=== PATIENT | male | born 1960 | race Caucasian/White ===

== ENCOUNTER 2020-08-04 02:01 | Day surgery (SDC) | payer MEDICARE, OTHER ==
[~2020-08-04 02:01] MED LIST: CIPR250 PO; FINA5 PO; HYDR1TAB94 PO; JANTOVEN2 MG PO; LEVE500 PO; MINO100 PO; OXYB5 PO; Oxybutynin Chlo15 MG PO; PHENY100ER PO; TAMS.4ER PO; WARF2 PO; WARF2.5 PO; WARF3 PO
[2020-08-04] MEDS ORDERED: ENOX100I SC (14:35)
== END 2020-08-04 14:10 | disposition home or self-care (01) ==
LOC: ATC 02:01
DX: K40.20 Bilateral inguinal hernia, without obstruction or gangrene, not specified as recurrent (principal); D68.2 Hereditary deficiency of other clotting factors; N52.9 Male erectile dysfunction, unspecified; I10 Essential (primary) hypertension; E78.5 Hyperlipidemia, unspecified; Z79.01 Long term (current) use of anticoagulants; Z87.891 Personal history of nicotine dependence
CPT/HCPCS: 96372; J1650

== ENCOUNTER 2020-08-05 00:19 | Day surgery (SDC) | payer MEDICARE, OTHER ==
[~2020-08-05 00:19] MED LIST changes: +ENOX100I SC
== END 2020-08-05 15:10 | disposition home or self-care (01) ==
LOC: ATC 00:19
DX: D68.2 Hereditary deficiency of other clotting factors (principal); K40.20 Bilateral inguinal hernia, without obstruction or gangrene, not specified as recurrent; Z79.01 Long term (current) use of anticoagulants; Z87.891 Personal history of nicotine dependence; Z86.010 Personal history of colon polyps; Z85.841 Personal history of malignant neoplasm of brain; R56.9 Unspecified convulsions; N52.9 Male erectile dysfunction, unspecified; N48.6 Induration penis plastica
CPT/HCPCS: 96372; J1650

== ENCOUNTER 2020-08-06 00:17 | Day surgery (SDC) | payer MEDICARE, OTHER | END 2020-08-06 15:10 | disposition home or self-care (01) | LOC: ATC 00:17 | DX: D68.2 Hereditary deficiency of other clotting factors (principal); K40.20 Bilateral inguinal hernia, without obstruction or gangrene, not specified as recurrent; I10 Essential (primary) hypertension; E78.5 Hyperlipidemia, unspecified; N48.6 Induration penis plastica; Z79.01 Long term (current) use of anticoagulants; Z87.891 Personal history of nicotine dependence | CPT/HCPCS: 36416; 85610; 96372; J1650 ==

== ENCOUNTER 2020-08-07 06:11 | Day surgery (SDC) | payer MEDICARE, SELFPAY ==
[~2020-08-07] VITALS: Ht 185.4 cm; Wt 90.0 kg
--- NOTE | 2020-08-07 06:57 | NUR ---
Ambulatory in Day Surgery History, Chart, Medications and Allergies reviewed before start of procedure. Lungs clear T/O to Auscultation. Pre-Op teaching done. Pt verbalizes understanding.
--- NOTE | 2020-08-07 11:02 | NUR ---
Patient up to Ambulate independently. Gait steady. Dressing to procedure site clean, dry, intact with no visible drainage, swelling, erythema or bruising noted. Discharge instructions reviewed with patient. Patient verbalizes understanding. Copy given to patient to take home. Patient States Post-Procedure ride home has been arranged. Discharged via wheelchair to private car for ride home.
[2020-08-08] MEDS ORDERED: HYDROCODONE BIT10 MG PO (14:14)
== END 2020-08-07 11:01 | disposition home or self-care (01) ==
LOC: ORSCMMR 06:11 → ORD 07:30 → ORSCMMR 11:01
PROVIDERS: Surgery
PROC: 0YUA0JZ Supplement Bilateral Inguinal Region with Synthetic Substitute, Open Approach (ICD-10-PCS; principal; 2020-08-07 07:30)
DX: K40.20 Bilateral inguinal hernia, without obstruction or gangrene, not specified as recurrent (principal); I10 Essential (primary) hypertension; Z87.891 Personal history of nicotine dependence; K21.9 Gastro-esophageal reflux disease without esophagitis; Z79.899 Other long term (current) drug therapy
CPT/HCPCS: A9270; C1781; J0690; J1100; J1885; J2250; J2405; J2704; J3010; J7120

== ENCOUNTER 2020-08-08 01:06 | Day surgery (SDC) | payer MEDICARE, OTHER ==
[2020-08-08] MEDS ORDERED: HYDROCODONE BIT10 MG PO (14:14)
== END 2020-08-08 14:14 | disposition home or self-care (01) ==
LOC: ATC 01:06
DX: K40.20 Bilateral inguinal hernia, without obstruction or gangrene, not specified as recurrent (principal); D68.2 Hereditary deficiency of other clotting factors; Z79.01 Long term (current) use of anticoagulants; Z87.891 Personal history of nicotine dependence
CPT/HCPCS: 36416; 85610; 96372; J1650

== ENCOUNTER 2020-08-09 00:19 | Day surgery (SDC) | payer MEDICARE, OTHER ==
[~2020-08-09 00:19] MED LIST changes: +HYDROCODONE BIT10 MG PO
== END 2020-08-09 14:13 | disposition home or self-care (01) ==
LOC: ATC 00:19
DX: D68.2 Hereditary deficiency of other clotting factors (principal); K40.20 Bilateral inguinal hernia, without obstruction or gangrene, not specified as recurrent; I10 Essential (primary) hypertension; R56.9 Unspecified convulsions; Z79.01 Long term (current) use of anticoagulants; Z87.891 Personal history of nicotine dependence
CPT/HCPCS: 36416; 85610; 96372; J1650

== ENCOUNTER 2020-08-10 00:13 | Day surgery (SDC) | payer MEDICARE, OTHER | END 2020-08-10 13:59 | disposition home or self-care (01) | LOC: ATC 00:13 | DX: D68.2 Hereditary deficiency of other clotting factors (principal); K40.20 Bilateral inguinal hernia, without obstruction or gangrene, not specified as recurrent; E78.5 Hyperlipidemia, unspecified; R56.9 Unspecified convulsions; Z87.891 Personal history of nicotine dependence | CPT/HCPCS: 36416; 85610; 96372; J1650 ==

== ENCOUNTER 2020-11-07 20:56 | Emergency (ER) | payer MEDICARE | END 2020-11-07 23:08 | disposition left against medical advice (07) | LOC: ER 20:56 | DX: Z53.21 Procedure and treatment not carried out due to patient leaving prior to being seen by health care provider (principal) ==

== ENCOUNTER 2022-05-16 12:42 | Emergency (ER) | payer MEDICARE ==
[~2022-05-16] VITALS: Ht 185.4 cm; Wt 92.5 kg
[2022-05-16 13:43] LABS: BASOPHILS ABSOLUTE AUTO 0.03 K/mm3 (0.00-0.23); BASOPHILS PERCENT AUTO 1 % (0-2); EOSINOPHILS ABSOLUTE AUTO 0.15 K/mm3 (0.00-0.68); EOSINOPHILS PERCENT AUTO 3 % (0-6); Hematocrit 39.4 % (37.0-53.0); Hemoglobin 13.5 g/dL (13.5-17.5); IMMATURE GRAN ABSOLUTE AUTO 0.02 K/mm3 (0.00-0.10); IMMATURE GRAN PERCENT AUTO 0 % (0-1); LYMPHOCYTES ABSOLUTE AUTO 1.87 K/mm3 (0.84-5.20); LYMPHOCYTES PERCENT AUTO 33 % (21-46); MONOCYTES ABSOLUTE AUTO 0.76 K/mm3 (0.16-1.47); MONOCYTES PERCENT AUTO 14 % (4-13); Mean Corpuscular HGB Conc 34.3 g/dL (31.5-36.5); Mean Corpuscular Volume 90 fL (80-100); Mean Platelet Volume 11.2 fL (9.1-12.4); NEUTROPHILS ABSOLUTE AUTO 2.79 K/mm3 (1.96-9.15); NEUTROPHILS PERCENT AUTO 50 % (41-73); Platelet Count 158 K/mm3 (150-400); RDW Coefficient Variation 11.9 % (11.7-14.2); RDW Standard Deviation 39.9 fL (35.1-46.3); Red Blood Cell Count 4.36 M/mm3 (4.30-5.90); White Blood Cell Count 5.62 K/mm3 (4.00-11.30)
[2022-05-16 14:01] LABS: Albumin, Blood 3.4 g/dL (3.4-5.0); Albumin/Globulin Ratio 1.1 (0.8-1.8); Bilirubin, Total 0.2 mg/dL (0.1-1.0); Bun/Creatinine Ratio 24.1 (12.0-20.0); Calcium, Blood 8.6 mg/dL (8.5-10.1); Creatinine, Blood 0.96 mg/dL (0.60-1.20); Globulin, Blood 3.1 g/dL (2.2-4.0); Potassium, Blood 4.6 mmol/L (3.5-5.5); Total Protein, Blood 6.5 g/dL (6.4-8.2)
== END 2022-05-16 17:16 | disposition home or self-care (01) ==
LOC: ER 12:42
PROVIDERS: Physician Assistant
DX: R47.01 Aphasia (principal); R47.81 Slurred speech; Z79.899 Other long term (current) drug therapy; Z79.01 Long term (current) use of anticoagulants; Z87.891 Personal history of nicotine dependence
CPT/HCPCS: 36415; 70450; 80053; 85025; 93005; 93010

== ENCOUNTER 2022-06-18 07:25 | Day surgery (SDC) | payer MEDICARE ==
[~2022-06-18] VITALS: Ht 185.4 cm; Wt 93.2 kg
[2022-06-18] MEDS ORDERED: ELIQUIS2.5 MG PO (08:10)
[2022-06-18 08:22] LABS: International Normalized Ratio 1.13; Prothrombin Time Results 11.8 Sec (9.7-11.5)
--- NOTE | 2022-06-18 09:55 | NUR ---
06/18/22 0955 Shira Ritter PATIENT RECEIVED VANCO 1GM PRIOR TO ARRIVING IN THE OR.
--- NOTE | 2022-06-18 13:12 | NUR ---
PT ARRIVED TO UNIT AT APROX 1245 FROM PACU. AQUACEL DRESSING TO L ANTERIOR HIP. PT DENIES PAIN AT TIME OF ARRIVAL. C/O NAUSEA UPON ARRIVAL, PREVIOUSLY MEDICATED WITH ZOFRAN IN PACU, MEDICATED WITH 12.5MG PHENERGAN. PT C/O SHIVERING/COLD, WARM BLANKETS PLACED ON PT. POST OP VSS ON ARRIVAL. PT APPEARS TO BE RESTING COMFORTABLY AT THIS TIME.
--- NOTE | 2022-06-18 19:23 | NUR ---
SHIFT SUMMARY PT POD 0 L DENNIS. AQUACEL DRESSING C/D/I ANTERIOR HIP. PT MOD ASSIST W/FWW AND GAIT BELT TO BATHROOM. PT HAS "LEFT SIDED FORGETFULLNESS" R/T PREVIOUS CRANIOTOMIES/BRAIN CA-PT FOLLOWS DIRECTION WELL. DID NOT WORK WITH PT TODAY R/T SEDATION FOLLOWING GENERAL AND ANTI-NAUSEA MEDICATION. PT TOLERATING REGULAR DIET WITH NO N/V. SALINE LOCKED. PLAN PT TOMORROW W/DC.
[2022-06-19 03:44] LABS: BASOPHILS ABSOLUTE AUTO 0.02 K/mm3 (0.00-0.23); BASOPHILS PERCENT AUTO 0 % (0-2); EOSINOPHILS ABSOLUTE AUTO 0.04 K/mm3 (0.00-0.68); EOSINOPHILS PERCENT AUTO 0 % (0-6); Hematocrit 32.3 % (37.0-53.0); Hemoglobin 11.5 g/dL (13.5-17.5); IMMATURE GRAN ABSOLUTE AUTO 0.05 K/mm3 (0.00-0.10); IMMATURE GRAN PERCENT AUTO 1 % (0-1); LYMPHOCYTES PERCENT AUTO 22 % (21-46); MONOCYTES ABSOLUTE AUTO 1.58 K/mm3 (0.16-1.47); MONOCYTES PERCENT AUTO 15 % (4-13); Mean Corpuscular HGB 31.4 pg (26.0-34.0); Mean Corpuscular HGB Conc 35.6 g/dL (31.5-36.5); Mean Corpuscular Volume 88 fL (80-100); NEUTROPHILS ABSOLUTE AUTO 6.84 K/mm3 (1.96-9.15); NEUTROPHILS PERCENT AUTO 62 % (41-73); Platelet Count 131 K/mm3 (150-400); RDW Coefficient Variation 11.9 % (11.7-14.2); RDW Standard Deviation 38.5 fL (35.1-46.3); Red Blood Cell Count 3.66 M/mm3 (4.30-5.90); White Blood Cell Count 10.93 K/mm3 (4.00-11.30)
[2022-06-19 04:03] LABS: Bun/Creatinine Ratio 23.4 (12.0-20.0); Calcium, Blood 7.8 mg/dL (8.5-10.1); Creatinine, Blood 0.98 mg/dL (0.60-1.20)
--- NOTE | 2022-06-19 07:21 | NUR ---
SHIFT SUMMARY NO ACUTE CHANGES THROUGH THE NIGHT, VSS,RESP UNLABORED, TOERATING PO INTAKE, VOIDING WNL, PAIN MANAGED PER EMAR, DRSG C/D/I, ICE PACK IN PLACE, RESTING QUIETLY AT THIS TIME, CALL LIGHT IN REACH.
[2022-06-19] MEDS ORDERED: Percocet 5-3251 EACH PO (09:28)
--- NOTE | 2022-06-19 10:00 | NUR ---
DISCHARGE SUMMARY PT A&OX4, VSS/RA, MARICRUZ PO, VOIDING, AMB FWW SBA, UP TO CHAIR, DRESSED SELF, PAIN MANAGED, IV DC'D. DC INS PROVIDED. PT AND REP UNDERSTANDING THOSE INS INC FU WITH , DRESSING CHANGES, PAIN MANAGEMENT, PT OUTPT, TEDS/POLAR TAINA, SHORT FREQUENT AMB. LEFT FLOOR VIA WC WITH CHEMICAL WASTE MANAGEMENT TECHNICIAN TO GO HOME WITH , WITH ALL PERSONAL POSSESSIONS INCLUDING AQUACEL DRESSINGS, DC PACKET, SCRIPTS.
== END 2022-06-19 09:57 | disposition home or self-care (01) ==
LOC: ORSCMMR 07:25 → ORD 10:00 → ORSCMMR 10:00 → ORD 10:15 → ORSCMMR 10:15 → SURS 12:40 → ORSCMMR 06-19 09:57
PROVIDERS: Orthopaedic Surgery
PROC: 0SRB0JZ Replacement of Left Hip Joint with Synthetic Substitute, Open Approach (ICD-10-PCS; principal; 2022-06-18 09:15)
DX: M16.12 Unilateral primary osteoarthritis, left hip (principal); Z87.891 Personal history of nicotine dependence; D68.51 Activated protein C resistance; Z86.718 Personal history of other venous thrombosis and embolism; Z79.01 Long term (current) use of anticoagulants; N40.0 Benign prostatic hyperplasia without lower urinary tract symptoms; Z79.899 Other long term (current) drug therapy; Z85.841 Personal history of malignant neoplasm of brain
CPT/HCPCS: 36415; 72170; 80048; 85025; 85610; 85730; 97110; 97116; 97162; A9270; C1776; J0171; J0690; J0735; J1100; J1885; J2250; J2370; J2405; J2550; J2704; J2795; J3010; J3370; J7120

== ENCOUNTER 2023-08-17 09:58 | Emergency (ER) | payer OTHER ==
[~2023-08-17] VITALS: Ht 185.4 cm; Wt 95.2 kg
[~2023-08-17 09:58] MED LIST changes: +ELIQUIS2.5 MG PO; +Percocet 5-3251 EACH PO
[2023-08-17] MEDS ORDERED: JANTOVEN2.5 M2 PO (10:06)
[2023-08-17 10:08] VITALS: BP 122/99
[2023-08-17 10:17] LABS: BASOPHILS ABSOLUTE AUTO 0.05 K/mm3 (0.00-0.23); BASOPHILS PERCENT AUTO 1 % (0-2); EOSINOPHILS ABSOLUTE AUTO 0.18 K/mm3 (0.00-0.68); EOSINOPHILS PERCENT AUTO 2 % (0-6); Hematocrit 41.1 % (37.0-53.0); Hemoglobin 14.1 g/dL (13.5-17.5); IMMATURE GRAN ABSOLUTE AUTO 0.03 K/mm3 (0.00-0.10); IMMATURE GRAN PERCENT AUTO 0 % (0-1); LYMPHOCYTES ABSOLUTE AUTO 3.95 K/mm3 (0.84-5.20); LYMPHOCYTES PERCENT AUTO 50 % (21-46); MONOCYTES ABSOLUTE AUTO 0.69 K/mm3 (0.16-1.47); MONOCYTES PERCENT AUTO 9 % (4-13); Mean Corpuscular HGB 30.5 pg (26.0-34.0); Mean Corpuscular HGB Conc 34.3 g/dL (31.5-36.5); Mean Corpuscular Volume 89 fL (80-100); Mean Platelet Volume 11.3 fL (9.1-12.4); NEUTROPHILS ABSOLUTE AUTO 3.07 K/mm3 (1.96-9.15); NEUTROPHILS PERCENT AUTO 38 % (41-73); Platelet Count 186 K/mm3 (150-400); RDW Coefficient Variation 12.3 % (11.7-14.2); Red Blood Cell Count 4.63 M/mm3 (4.30-5.90); White Blood Cell Count 7.97 K/mm3 (4.00-11.30)
[2023-08-17] MEDS ORDERED: Ondansetron HCl 2 MG / ML 2ML Vial IV ONE (10:20)
[2023-08-17 10:38] LABS: International Normalized Ratio 2.65; Prothrombin Time Results 26.3 Sec (9.7-11.5)
[2023-08-17 10:40] LABS: Albumin, Blood 3.6 g/dL (3.4-5.0); Albumin/Globulin Ratio 1.1 (0.8-1.8); Bilirubin, Total 0.4 mg/dL (0.1-1.0); Bun/Creatinine Ratio 20.3 (12.0-20.0); Calcium, Blood 8.9 mg/dL (8.5-10.1); Creatinine, Blood 0.99 mg/dL (0.60-1.20); Globulin, Blood 3.4 g/dL (2.2-4.0); Potassium, Blood 3.7 mmol/L (3.5-5.5)
[2023-08-17 10:57] LABS: Dilantin (Phenytoin), Total 4.1 ug/mL (10.0-20.0)
== END 2023-08-17 12:18 | disposition home or self-care (01) ==
LOC: ER 09:58
PROVIDERS: Emergency Medicine
DX: R56.9 Unspecified convulsions (principal); D68.51 Activated protein C resistance; Z87.891 Personal history of nicotine dependence; Z85.841 Personal history of malignant neoplasm of brain; Z79.01 Long term (current) use of anticoagulants; Z79.899 Other long term (current) drug therapy
CPT/HCPCS: 70450; 80053; 80185; 82947; 85025; 85610; 96374; 99284-25; J2405

== ENCOUNTER 2024-10-05 12:51 | Day surgery (SDC) | payer OTHER ==
[~2024-10-05] VITALS: Ht 185.4 cm; Wt 95.3 kg
[~2024-10-05 12:51] MED LIST changes: +JANTOVEN2.5 M2 PO
[2024-10-05] MEDS ORDERED: ELIQUIS2.5 MG (14:04)
[2024-10-05] MEDS ORDERED: Lactated Ringer's 1,000 ML IV ONE ×2 (14:52→15:16)
[2024-10-05] MEDS ORDERED: propofoL 40 ML IV ONE (15:16)
[2024-10-05] MEDS ORDERED: propofoL 20 ML IV ONE (15:44)
[2024-10-05 16:24] VITALS: BP 123/70
== END 2024-10-05 16:23 | disposition home or self-care (01) ==
LOC: ORSCSDS 12:51
PROVIDERS: Surgery
PROC: 0DBL8ZX Excision of Transverse Colon, Via Natural or Artificial Opening Endoscopic, Diagnostic (ICD-10-PCS; principal; 2024-10-05 14:45)
DX: Z12.11 Encounter for screening for malignant neoplasm of colon (principal); Z86.0101 Personal history of adenomatous and serrated colon polyps; D12.3 Benign neoplasm of transverse colon; D68.51 Activated protein C resistance; I10 Essential (primary) hypertension; E78.5 Hyperlipidemia, unspecified; G40.909 Epilepsy, unspecified, not intractable, without status epilepticus; Z79.01 Long term (current) use of anticoagulants; Z79.899 Other long term (current) drug therapy; Z87.891 Personal history of nicotine dependence
CPT/HCPCS: 88305; J2704; J7120

== ENCOUNTER → 2025-01-17 | Outpatient (CLI) | payer OTHER ==
[~2025-01-17] MED LIST changes: +ELIQUIS2.5 MG; -JANTOVEN2.5 M2 PO; +LEVETIRACETAM50014 PO; +OXYC5 PO; -PHENY100ER PO; +PHENYTOIN SODI100 MG PO
== END | disposition home or self-care (01) ==
LOC: LAB 13:31 → LAB SHORT 13:31
DX: R35.0 Frequency of micturition (principal)
CPT/HCPCS: 87077; 87086; 87186